=== PATIENT | male | born 1965 | race Caucasian/White ===

== ENCOUNTER 2020-04-01 21:13 | Emergency (ER) | payer OTHER ==
[~2020-04-01] VITALS: Ht 165.1 cm; Wt 78.6 kg
[2020-04-01] MEDS ORDERED: SODIUM CHLORIDE FLUSH 10ML SYR IVF ONE (21:30)
[2020-04-01] MEDS ORDERED: ONDANSETRON 2MG/ML, 2ML IVPush ONE (21:30)
[2020-04-01] MEDS ORDERED: MORPHINE SULFATE 4 MG/ML, 1ML IVPush PRN (21:30)
[2020-04-01] MEDS ORDERED: KETOROLAC 30 MG/1 ML IVPush ONE (21:30)
[2020-04-01] MEDS ORDERED: ONDANSETRON 2MG/ML, 2ML ONE (21:53)
[2020-04-01] MEDS ORDERED: KETOROLAC 30 MG/1 ML ONE (21:53)
[2020-04-01] MEDS ORDERED: SODIUM CHLORIDE 0.9% 1,000ML IVBOLUS ONE (22:00)
[2020-04-01 22:16] LABS: ALANINE AMINOTRANSFERASE 37 U/L (12-78); ANION GAP 7 mmol/L (5-15); CALCIUM 8.5 mg/dL (8.5-10.1); CHLORIDE 110 mmol/L (98-107); CREATININE 1.11 mg/dL (0.7-1.3)
[2020-04-01 22:19] LABS: ALKALINE PHOSPHATASE 91 U/L (45-117); BILIRUBIN,TOTAL 0.4 mg/dL (0.2-1.0); TOTAL PROTEIN 7.2 g/dL (6.4-8.2)
[2020-04-01] MEDS ORDERED: TAMSULOSIN 0.4 MG CAP.ER.24H PO ONE (22:30)
[2020-04-01] MEDS ORDERED: TAMSULOSIN 0.4 MG CAP.ER.24H ONE (22:36)
[2020-04-01 22:50] LABS: BASOPHILS # (AUTO) 0.02 x10^3/uL (0-0.1); BASOPHILS % (AUTO) 0 % (0-1); EOSINOPHILS # (AUTO) 0.18 x10^3/uL (0-0.4); EOSINOPHILS % (AUTO) 4 % (1-7); LYMPHOCYTES # (AUTO) 1.31 x10^3/uL (1-3.4); LYMPHOCYTES % (AUTO) 28 % (22-44); MD NO; MEAN CORPUSCULAR HEMOGLOBIN 29.3 pg (27.5-34.5); MEAN CORPUSCULAR HGB CONC 33.6 g/dL (33.2-36.2); MEAN CORPUSCULAR VOLUME 87.3 fL (81-97); MEAN PLATELET VOLUME 8.9 fL (7.4-10.4); MONOCYTES # (AUTO) 0.31 x10^3/uL (0.2-0.8); MONOCYTES % (AUTO) 7 % (2-9); NEUTROPHILS # (AUTO) 2.78 x10^3/uL (1.8-6.8); NEUTROPHILS % (AUTO) 61 % (42-75); PLATELET COUNT 166 x10^3/uL (130-400); RED BLOOD COUNT 4.59 x10^6/uL (4.38-5.82); RED CELL DISTRIBUTION WIDTH 12.8 % (9.4-14.8)
[2020-04-01 23:48] LABS: MICROSCOPIC AUTO
[2020-04-02 00:42] VITALS: BP 132/74
== END 2020-04-02 00:44 | disposition home or self-care (01) ==
LOC: ED 22:45
DX: N13.2 Hydronephrosis with renal and ureteral calculous obstruction (principal)
CPT/HCPCS: 36415; 74176; 80053; 81001; 83690; 85025; 96361; 96374; 96375; 99284; J1885; J2405; J7030

== ENCOUNTER → 2020-04-07 | Day surgery (SDC) | payer OTHER | END | disposition home or self-care (01) | LOC: OUT 11:05 | PROVIDERS: ATTEND Urology | DX: Z02.9 Encounter for administrative examinations, unspecified (principal) ==

== ENCOUNTER 2020-12-14 18:48 | Emergency (ER) | payer OTHER ==
[~2020-12-14] VITALS: Ht 165.1 cm; Wt 78.6 kg
[2020-12-14 19:36] LABS: BASOPHILS % (AUTO) 1 % (0-1); EOSINOPHILS % (AUTO) 6 % (1-7); LYMPHOCYTES % (AUTO) 41 % (22-44); MEAN CORPUSCULAR HEMOGLOBIN 28.8 pg (27.5-34.5); MEAN CORPUSCULAR HGB CONC 33.6 g/dL (33.2-36.2); MEAN PLATELET VOLUME 8.7 fL (7.4-10.4); MONOCYTES % (AUTO) 8 % (2-9); NEUTROPHILS % (AUTO) 46 % (42-75); PLATELET COUNT 198 x10^3/uL (130-400); RED BLOOD COUNT 5.17 x10^6/uL (4.38-5.82); RED CELL DISTRIBUTION WIDTH 13.3 % (9.4-14.8)
[2020-12-14 20:05] LABS: MICROSCOPIC INDICATED
[2020-12-14 20:06] LABS: ALANINE AMINOTRANSFERASE 39 U/L (12-78); ALBUMIN 4.2 g/dL (3.4-5.0); ANION GAP 6 mmol/L (5-15); CALCIUM 8.6 mg/dL (8.5-10.1); CHLORIDE 111 mmol/L (98-107); CREATININE 1.13 mg/dL (0.7-1.3)
[2020-12-14 20:08] LABS: ALKALINE PHOSPHATASE 96 U/L (45-117); BILIRUBIN,TOTAL 0.4 mg/dL (0.2-1.0); TOTAL PROTEIN 7.4 g/dL (6.4-8.2)
[2020-12-14 22:20] VITALS: BP 124/87
== END 2020-12-14 22:22 | disposition home or self-care (01) ==
LOC: ED 20:08
DX: N13.2 Hydronephrosis with renal and ureteral calculous obstruction (principal)
CPT/HCPCS: 36415; 74018; 76770; 80053; 81001; 85025; 99285

== ENCOUNTER 2021-04-12 11:33 | Emergency (ER) | payer OTHER ==
[~2021-04-12] VITALS: Ht 165.1 cm; Wt 78.0 kg
--- NOTE | 2021-04-12 15:38 | NUR ---
[employer] HELPER: PT TO ROOM FROM LOBBY
[2021-04-12 16:04] VITALS: BP 131/76
--- NOTE | 2021-04-12 16:56 | NUR ---
pt educated on dc instructions and prescription, verbalized understanding. ambulatory to dc desk with steyad gait.
== END 2021-04-12 16:59 | disposition home or self-care (01) ==
LOC: ED 11:36
DX: H81.12 Benign paroxysmal vertigo, left ear (principal); R11.2 Nausea with vomiting, unspecified; R00.1 Bradycardia, unspecified
CPT/HCPCS: 70450; 93005; 99284